=== PATIENT | female | born 1990 | race Caucasian/White ===

== ENCOUNTER → 2016-08-08 | Outpatient (CLI) | payer BC ==
[~2016-08-08] MED LIST: ACET-1257 PO; CEPH500C2 PO
[2016-08-13 00:18] LABS: CHLAMYDIA TRACH RNA*** NOT DETECTED (NOT DETECTED); GC (NEIS GONORRHOEAE)RNA** NOT DETECTED (NOT DETECTED)
== END | disposition home or self-care (01) ==
LOC: C.LABSPEC 17:46
PROVIDERS: ATTEND Obstetrics & Gynecology
DX: N76.0 Acute vaginitis (principal)

== ENCOUNTER → 2017-04-29 | Outpatient (CLI) | payer BC | END | disposition home or self-care (01) | LOC: C.PAPS 17:00 | PROVIDERS: ATTEND Obstetrics & Gynecology | DX: Z01.419 Encounter for gynecological examination (general) (routine) without abnormal findings (principal) ==

== ENCOUNTER 2025-03-29 06:10 | Inpatient (IN) ==
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
[2025-03-29] MEDS: LACTATED RINGER'S 1,000 ML IV PRN (08:45)
[2025-03-29] MEDS ORDERED: OXYTOCIN 30 UNITS/NSS 30 UNITS/500 ML BAG IV PRN (08:59)
[2025-03-29] MEDS ORDERED: LIDOCAINE 1% LOCAL 20 ML VIAL INFIL PRN (08:59)
[2025-03-29 09:50] LABS: Hematocrit (blood only) 38.1 % (37.0-47.0); Hemoglobin 13.3 g/dl (12.0-16.0); Mean Corpuscular Hemoglobin 32.3 pg (25.0-34.0); Mean Corpuscular Volume 92.5 fL (80.0-100.0); Platelet Count 191 K/uL (130-400); RDW Standard Deviation 43.2 fL (36.4-46.3); Red Blood Count 4.12 M/uL (4.20-5.40); White Blood Count 13.58 K/ul (4.8-10.8)
[2025-03-29] MEDS ORDERED: SODIUM CHLORIDE 0.9% PF INJ 10 ML VIAL EPI STA (09:54)
[2025-03-29] MEDS ORDERED: NALBUPHINE HCL INJ 10 MG/ML AMP IV PRN (09:54)
[2025-03-29] MEDS ORDERED: NALOXONE HCL 0.4 MG/1 ML VIAL/CARP IV PRN (09:54)
[2025-03-29] MEDS ORDERED: fentANYL 2 MCG/ML BUPIVacaine 0.125%-NSS 100ML BAG EPI PRN (09:54)
[2025-03-29] MEDS ORDERED: NALOXONE HCL 1 MG in SODIUM CHLORIDE 0.9% 1,000 ML IV PRN (09:54)
[2025-03-29] MEDS ORDERED: LIDOCAINE 2% MPF LOCAL 5 ML VIAL EPI PRN (09:54)
[2025-03-29] MEDS ORDERED: BUPIVACAINE 0.25% PF 30 ML VIAL EPI STA (09:54)
[2025-03-29] MEDS ORDERED: LIDOCAINE 2%/EPINEPHRINE 1:200,000 20 ML PF EPI STA (09:54)
[2025-03-29] MEDS ORDERED: ONDANSETRON INJ 2 MG/ML 2 ML VIAL IV PRN (09:54)
[2025-03-29] MEDS ORDERED: SODIUM CHLORIDE 0.9% PF INJ 10 ML VIAL EPI PRN (09:54)
[2025-03-29] MEDS ORDERED: ROPIVACAINE 0.5% PF 5 MG/ML 20 ML VIAL EPI PRN (09:54)
[2025-03-29] MEDS ORDERED: BUPIVACAINE 0.25% PF 30 ML VIAL EPI PRN (09:54)
[2025-03-29] MEDS ORDERED: diphenhydrAMINE 50 MG/ML VIAL IV PRN (09:54)
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
[2025-03-29] MEDS: LIDOCAINE 2%/EPINEPHRINE 1:200,000 20 ML PF ONE (10:18)
[2025-03-29] MEDS: BUPIVACAINE 0.25% PF 30 ML VIAL ONE (10:18)
[2025-03-29] MEDS: fentANYL 2 MCG/ML BUPIVacaine 0.125%-NSS 100ML BAG ONE (10:22)
[2025-03-29] MEDS: SODIUM CHLORIDE 0.9% PF INJ 10 ML VIAL ONE (11:00)
[2025-03-29] MEDS: OXYTOCIN 30 UNITS/NSS 30 UNITS/500 ML BAG IV PRN ×2 (11:57→15:56)
--- NOTE | 2025-03-29 15:34 | Delivery Summary ---
Vaginal Delivery Summary Date of Service March 29, 2025 Vaginal Delivery Summary DIAGNOSES: 1. Tejeda intrauterine at 40w1d gestation. 2. Spontaneous onset of labor. 3. Group B Streptococcus Neg. PROCEDURE: Spontaneous vaginal delivery and repair of 2nd degree laceration. SURGEON: Alisha Brown MD. RUG TOUCH UP PAINTER: None. ESTIMATED BLOOD LOSS: 552 mL. COMPLICATIONS: None. PLACENTA: Spontaneous and intact with a 3-vessel cord. DISPOSITION: Stable to labor and delivery. DESCRIPTION: The patient pushed well and brought the head to in OA position. The infant's head was allowed to deliver with contraction force and no further active pushing, with the perineum protected during this time. There was no nuchal cord. The left shoulder was anterior. The shoulders and body delivered without any difficulty, and the was placed on the maternal abdomen. It was vigorous and moving all extremities, and making respiratory efforts. The cord was doubly clamped by the MD and then cut by the FOB. The placenta delivered spontaneously and was noted to be intact and with a 3VC. The cervix, vagina and perineum were examined and were found to have a second degree laceration which was repaired in the usual manner with vicryl suture including two crown stitches to rebuild the perineal body. The fundus was firm and lochia minimal immediately after delivery. [facility] Vaginal Delivery Charge Vaginal Delivery Codes: 20244 global code for the antepartum, delivery, and post-
[2025-03-29] MEDS ORDERED: HYDROCORTISONE ACETATE 25 MG SUPP PR PRN (15:41)
[2025-03-29] MEDS ORDERED: DIPHTHER/TETAN/PERTUS Vaccine (Tdap, Adol/Adult) 0.5mL IM ONE (15:41)
[2025-03-29] MEDS: IBUPROFEN 600 MG TAB PO PRN (15:57)
[2025-03-29] MEDS: BENZOCAINE 20% SPRY 85 APPLN/85 GM CAN EXT PRN (15:57)
--- NOTE | 2025-03-29 16:49 | Anesthesia Procedure Note ---
Date of Service March 29, 2025 Anesthesia Post Epidural Note Vital Signs Vital Signs: Temp Pulse Resp BP Pulse Ox 36.9 C 78 16 132/73 98 03/29/25 12:45 03/29/25 16:41 03/29/25 16:30 03/29/25 16:41 03/29/25 15:15 Notes Mental Status: alert / awake / arousable and participated in evaluation Nausea / Vomiting: adequately controlled Pain: adequately controlled Airway Patency, RR, SpO2: stable & adequate BP & HR: stable & adequate Hydration State: stable & adequate Neuraxial Anesthesia: was administered and sensory block is resolving Anesthetic Complications: no major complications apparent Epidural: Removed without complications and With tip intact
[2025-03-29] MEDS: DOCUSATE SODIUM 100 MG CAP PO SCH (20:27)
[2025-03-30] MEDS: ACETAMINOPHEN 325 MG TAB PO PRN (00:45)
--- NOTE | 2025-03-30 06:13 | Obstetrical Progress Note ---
Date of Service March 30, 2025 Assessment & Plan (1) care and examination: Plan: 35yo post- day--1 s/p Fells well today Continue post- care Encourage ambulation and Pain controlled with Ibuprofen, Tylenol Vital Signs stable Admission and Anticipated Discharge Date Admission Date: March 29, 2025 Supervising Physician Co-Signing Physician Notes Resident Physician Supervision Note: I interviewed and examined the patient. Discussed with Dr. Solorzano and agree with findings and plan as documented in the note. Any exceptions or clarifications are listed here: [ ] Documented By: Alisha Brown MD, FACOG, MSCP Subjective 35yo post- day 1 s/p Ambulation: Ambulating normally Voiding: No voiding problems Passing Gas:: Yes Diet Tolerance:: regular diet Lochia:: Small Feeding Type:: Current Pain Level: 3/10 controlled with Tylenol, Ibuprofen Resting comfortably this AM in NAD. Denies LOWE, CP, SOB, N/V/D, LE pain/swelling. Physical Exam Physical Exam: General: patient resting comfortably, NAD, non-toxic in appearance, answers questions appropriately Skin: warm, dry, intact Heart: S1/S2 heard, regular, no m/r/g Lungs: equal air entry bilaterally, no rales/rhonchi/wheezes Abd: Normoactive BS, soft, NT/ND, uterine fundus firm below umbilicus Ext: warm, no clubbing/cyanosis or edema, Kerline's neg Neuro: nonfocal, patient AAOx4, speech intact, no facial droop, moving all extremities on command Results & Data Vital Signs (Past 12 Hours) Vital Signs Temp Pulse Resp BP Pulse Ox O2 Del Method 03/30/25 00:00 36.8 C 84 16 112/81 98 Room Air 03/29/25 20:00 36.7 C 77 18 115/71 97 Room Air Resident Activity Tracking Resident Involvement: Resident Care Provided Care Provided: OB Delivery
[2025-03-30 06:31] LABS: Hematocrit (blood only) 32.1 % (37.0-47.0); Hemoglobin 11.0 g/dl (12.0-16.0); Mean Corpuscular Hemoglobin 32.4 pg (25.0-34.0); Mean Corpuscular Volume 94.7 fL (80.0-100.0); Platelet Count 170 K/uL (130-400); RDW Standard Deviation 44.4 fL (36.4-46.3); Red Blood Count 3.39 M/uL (4.20-5.40); White Blood Count 11.43 K/ul (4.8-10.8)
[2025-03-30] MEDS: PRENATAL VITAMIN 1 TAB PO SCH (08:35)
[2025-03-31 02:04] VITALS: PULSE 85; O2SAT 98
--- NOTE | 2025-03-31 06:34 | Obstetrical Progress Note ---
Date of Service March 31, 2025 Assessment & Plan (1) care and examination: Plan: 35yo post- day--2 s/p Fells well today Continue post- care Encourage ambulation and Pain controlled with Ibuprofen, Tylenol Vital Signs and Hb stable Discharge home today, follow up with OB in 6 weeks Admission and Anticipated Discharge Date Admission Date: March 29, 2025 Supervising Physician Co-Signing Physician Notes Resident Physician Supervision Note: I interviewed and examined the patient. Discussed with Dr. Solorzano and agree with findings and plan as documented in the note. Any exceptions or clarifications are listed here: Doing well. Meeting goals. Plan d/c today. Instructions given. f/u 6 weeks. Documented By: Zully Keating MD, FACOG Subjective 35yo post- day 2 s/p Ambulation: Ambulating normally Voiding: No voiding problems Passing Gas:: Yes Diet Tolerance:: regular diet Lochia:: Small Feeding Type:: Current Pain Level: 2/10 controlled with Tylenol, Ibuprofen Resting comfortably this AM in NAD. Denies LOWE, CP, SOB, N/V/D, LE pain/swelling. Physical Exam Physical Exam: General: patient resting comfortably, NAD, non-toxic in appearance, answers questions appropriately Skin: warm, dry, intact Heart: S1/S2 heard, regular, no m/r/g Lungs: equal air entry bilaterally, no rales/rhonchi/wheezes Abd: Normoactive BS, soft, NT/ND, uterine fundus firm below umbilicus Ext: warm, no clubbing/cyanosis or edema, Kerline's neg Neuro: nonfocal, patient AAOx4, speech intact, no facial droop, moving all extremities on command Results & Data Vital Signs (Past 12 Hours) Vital Signs Temp Pulse Resp BP Pulse Ox O2 Del Method 03/31/25 00:00 36.6 C 85 16 119/72 98 Room Air 03/30/25 19:45 36.5 C 83 16 114/65 97 Room Air Resident Activity Tracking Resident Involvement: Resident Care Provided Care Provided: OB Delivery
[2025-03-31 07:13] LABS: Hematocrit (blood only) 32.7 % (37.0-47.0); Hemoglobin 11.0 g/dl (12.0-16.0)
[2025-03-31 10:43] VITALS: BP 129/80; RESP 18; TEMP 98.1
== END 2025-03-31 18:15 | disposition home or self-care (01) | DRG 807 ==
LOC: OPB 06:10 → 4S1 06:16 → 4E2 18:04